=== PATIENT | female | born 1970 | race Caucasian/White ===

== ENCOUNTER 2024-06-04 14:52 | Emergency (ER) | payer OTHER, SELFPAY ==
--- NOTE | ~2024-06-04 | CT_ITS ---
EXAMINATION: CT ABDOMEN AND PELVIS WITH CONTRAST CLINICAL INFORMATION: Lower abdominal pain COMPARISON: None available. TECHNIQUE: Multidetector volumetric images were obtained from the superior aspect of the liver through the pubic symphysis following administration 85 mL of Omnipaque 350 intravenous contrast. Sagittal and coronal reformatted images were obtained on the technologist's workstation. Oral contrast: No This CT examination was performed using dose optimization techniques as appropriate, variously including the following: *Automated exposure control *Adjustment of mA and/or kV according to patient size (this includes techniques or standardized protocols for targeted exams where dose is matched to indication/reason for exam; i.e. extremities or head) *Use of iterative reconstruction technique DLP: 790 mGy-cm FINDINGS: LUNG BASES: 4 mm nodule in the right lower lobe. LIVER, GALLBLADDER, AND BILIARY TREE: Liver is decreased in density consistent with hepatic steatosis. The gallbladder is unremarkable with no evidence of radiopaque gallstones, gallbladder wall thickening, or obvious pericholecystic inflammatory changes. PANCREAS: Unremarkable. SPLEEN: Unremarkable. ADRENAL GLANDS: Unremarkable. KIDNEYS AND URETERS: The kidneys are normal in size, shape, and attenuation. No hydronephrosis, hydroureter, or calculi seen. No perinephric stranding. BLADDER: Unremarkable. GASTROINTESTINAL TRACT: The small bowel are unremarkable. The appendix is unremarkable. Focal bowel wall thickening with adjacent inflammatory stranding in minimal mesenteric fluid is seen adjacent to the sigmoid colon. Multiple diverticula are seen within the sigmoid colon and findings most consistent with acute diverticulitis. No evidence of drainable abscess formation. No free air seen. ABDOMINAL WALL: No significant hernia is appreciated. LYMPH NODES: Normal. VASCULAR: Unremarkable. PELVIC VISCERA: The uterus and adnexa are unremarkable. OSSEOUS STRUCTURES: Unremarkable. CT/CT abdomen pelvis w IV con IMPRESSION: 1. Acute diverticulitis of the sigmoid colon. No evidence of abscess formation or free air. 2. Hepatic steatosis. 3. 4 mm nodule in the right lower lobe. According to the UPDATED 2017 Fleischner Society recommendations, the advised follow-up imaging for solid nodules <6 mm in the middle/lower lobes is no routine follow up. Electronically signed by: Billy Rogel MD 06/04/2024 10:34 PM EDT
[2024-06-04 15:26] VITALS: BP 156/106; PULSE 109; RESP 18; TEMP 37.1; O2SAT 98; BMI 33.4
--- NOTE | 2024-06-04 15:27 | ED.ABDPAIN ---
HPI - Abdominal Pain General Chief Complaint: Abdominal Pain Stated Complaint: abd pain Time Seen by Provider: 06/04/24 19:31 History of Present Illness ED Provider: Dr. Murcia HPI narrative: 53 y/o F patient; without significant PMH; presents from home reporting intermittent cramping lower abdominal pain associated with maroon diarrhea. Patient states she has been having to strain with bowel movements. She denies: nausea/vomiting, fever or chills, chest pain, SOB, cough/congestion, syncope. No significant food aversion. She denies daily alcohol intake. She denies frequent NSAID use. She did have a colonoscopy at age 49 that was notable for diverticulosis. Related Data Allergies Allergy/AdvReac Type Severity Reaction Status Date / Time amoxicillin Allergy Rash Verified 06/04/24 15:31 azithromycin [From Zithromax] Allergy Rash Verified 06/04/24 15:31 doxycycline Allergy Rash Verified 06/04/24 15:31 metformin Allergy Gastrointestinal Verified 06/04/24 15:31 Upset Penicillins Allergy Rash Verified 06/04/24 15:31 Sulfa (Sulfonamide Allergy Rash Verified 06/04/24 15:31 Antibiotics) Review of Systems Review of Systems Yes all other systems are reviewed and are negative Denies Sensory deficit (Neuro) PMFSH Past Medical History Attestation statement: The following information was validated with the patient. Source: old records reviewed Social History Social History Advance Directives: No Advance Directives Information Provided: Yes Physical Exam ED Vital Signs: Vital Signs - 24 hr 06/04/24 15:26 06/04/24 19:38 Temperature 98.8 F 97.2 F Pulse Rate 109 H 106 H Respiratory Rate 18 16 Blood Pressure 156/106 H 159/87 H Pulse Oximetry 98 100 Oxygen Delivery Method Room Air Room Air BMI result Body Mass Index 33.4 Patient is afebrile, tachycardic, hemodynamically stable Const General: cooperative and no acute distress Orientation/consciousness: patient oriented x3 HENMT Head: Yes normal to inspection and Yes atraumatic Eyes General: appearance normal, both eyes and all related structures Pupils: Equal, round and reactive pupils present EOM: EOMs intact bilaterally Neck Neck: Yes normal visual inspection, Yes full ROM, Yes supple and No tender Chest Chest palpation & inspection: normal inspection of the chest and normal palpation of entire chest wall Resp Effort & Inspection: normal respiratory effort, able to speak in complete sentences, no cough and no respiratory distress Auscultation: clear to auscultation bilaterally Cardio Rate: tachycardic Rhythm: regular rhythm Peripheral pulses: Peripheral pulses 2+ throughout GI Other: LLQ abdominal tenderness Inspection: Yes normal to inspection, No Abdominal wall edema and No distended Palpation (GI): Soft to palpation, not firm, Tenderness to palpation present (GI), no guarding and not rigid Auscultation: normal bowel sounds Back/Spine/Pelvis Back: No back tenderness Neuro General: patient oriented x3 Cranial nerves: Yes Equal, round and reactive pupils present Motor exam (neuro): 5/5 motor strength present throughout Sensory Exam: No Sensory deficit (Neuro) Course Course Course Narrative: This is a Rapid Medical Examination (RME) performed by Sowmya Recinos PA-C in triage. Full HPI, ROS, assessment and treatment plan per primary provider in the Main ED. 53 yo female here w/ lower abdominal cramping, reports loose stools, and an episode of bloody/mucous stool this morning. abd pain has been constant, waxes and wanes in intensity. last colonoscopy 4 yrs ago. not on AC. + obese abd, soft, ND/NT. Plan: labs, UA, OBS Reevaluation(s) Reevaluation #1: Patient is afebrile and hemodynamically stable. Reviewed triage work up. WBC with leukocytosis 15. COVID/Flu/RSV negative. Will obtain CT Abdomen/Pelvis to r/o diverticulitis. Plan: Transition care to Dr. Pollock Condition: Stable Medical Decision Making Lab Data 06/04/24 15:58 06/04/24 15:58 Labs: Lab Results 06/04/24 Range/Units 15:58 WBC 15.0 H (4.8-10.8) X10*3/uL RBC 5.04 (4.20-5.50) X10*6/uL Hgb 14.7 (12.0-16.0) g/dl Hct 42.6 (37.0-47.0) % MCV 84.5 (80.0-98.0) fL MCH 29.2 (27.0-33.0) pg MCHC 34.5 (31.0-35.0) g/dl RDW 12.6 (11.0-16.0) % Plt Count 302 (160-400) X10*3/uL MPV 10.7 (9.4-12.3) fL Immature Gran % (Auto) 0.4 (0.0-0.4) % Neut % (Auto) 75.9 H (45-73) % Lymph % (Auto) 15.8 L (20-40) % Dawes % (Auto) 7.5 (2-11) % Eos % (Auto) 0.1 (0-4) % Baso % (Auto) 0.3 (0-2) % Lymph # (Auto) 2.4 (1.2-4.9) X10*3/uL Dawes # (Auto) 1.1 (0.1-1.2) X10*3/uL Eos # (Auto) 0.0 (0.0-0.4) X10*3/uL Baso # (Auto) 0.0 (0.0-0.2) X10*3/uL Abs Immat Gran (auto) 0.06 H (0.00-0.03) X10*3/uL Absolute Neuts (auto) 11.4 H (2.0-8.3) x10*3/uL Absolute Nucleated RBC 0.000 (0.0-0.012) X10*3/uL Nucleated RBC % (auto) 0.0 (0.0-0.2) /100WBC Sodium 136 (135-145) mmol/L Potassium 4.3 (3.3-5.1) mmol/L Chloride 101 (96-108) mmol/L Carbon Dioxide 24 (22-29) mmol/L Anion Gap 15 (12-20) BUN 8 L (9-16) mg/dL Creatinine 0.80 (0.5-1.4) mg/dL Estim Creat Clear Calc 89.6 Estimated GFR > 60 Random Glucose 171 H (60-115) mg/dL Calcium 9.8 (8.4-10.2) mg/dL Magnesium 2.1 (1.6-2.6) mg/dL Total Bilirubin 0.6 (0.0-1.0) mg/dL AST 27 (5-31) U/L ALT 43 H (0-31) U/L Alkaline Phosphatase 107 (39-117) U/L Total Protein 7.7 (6.5-8.0) g/dL Albumin 4.3 (3.5-5.0) g/dL Lipase 26 (8-78) U/L Influenza Type A (PCR) NEGATIVE (Negative) Influenza Type B (PCR) NEGATIVE (Negative) RSV RNA Qual (PCR) NEGATIVE (Negative) SARS-CoV-2 RNA (RT-PCR) NEGATIVE (Negative) Discharge Plan Discharge Clinical Impression: Abdominal pain Patient Disposition: Still a Patient Print Language: Greenlandic
[2024-06-04 16:04] LABS: MANUAL DIFF FLAG NO
[2024-06-04 16:05] LABS: Basophils Percent Auto 0.3 % (0-2); Eosinophils Percent Auto 0.1 % (0-4); Hematocrit 42.6 % (37.0-47.0); Hemoglobin 14.7 g/dl (12.0-16.0); Imm Gran Abs Auto 0.06 X10*3/uL (0.00-0.03); Imm Gran Pct Auto 0.4 % (0.0-0.4); Lymphocytes Absolute Auto 2.4 X10*3/uL (1.2-4.9); Lymphocytes Percent Auto 15.8 % (20-40); Mean Corpuscular HGB Conc 34.5 g/dl (31.0-35.0); Mean Corpuscular Hemoglobin 29.2 pg (27.0-33.0); Mean Corpuscular Volume 84.5 fL (80.0-98.0); Mean Platelet Volume 10.7 fL (9.4-12.3); Monocytes Absolute Auto 1.1 X10*3/uL (0.1-1.2); Monocytes Percent Auto 7.5 % (2-11); Neutrophils Absolute Auto 11.4 x10*3/uL (2.0-8.3); Neutrophils Percent Auto 75.9 % (45-73); Platelet Count 302 X10*3/uL (160-400); Red Blood Count 5.04 X10*6/uL (4.20-5.50); Red Cell Distribution Width 12.6 % (11.0-16.0)
[2024-06-04 16:19] LABS: Alanine Aminotransferase 43 U/L (0-31); Albumin Level 4.3 g/dL (3.5-5.0); Alkaline Phosphatase 107 U/L (39-117); Anion Gap 15 (12-20); Aspartate Amino Transferase 27 U/L (5-31); Bilirubin Total 0.6 mg/dL (0.0-1.0); Blood Urea Nitrogen 8 mg/dL (9-16); Calcium 9.8 mg/dL (8.4-10.2); Carbon Dioxide 24 mmol/L (22-29); Chloride 101 mmol/L (96-108); Creatinine Clr Calc Pharmacy 89.6; Estimated Glomerular Filt Rate > 60; Glucose Random 171 mg/dL (60-115); Lipase 26 U/L (8-78); Magnesium 2.1 mg/dL (1.6-2.6); Potassium 4.3 mmol/L (3.3-5.1); Sodium 136 mmol/L (135-145); Total Protein 7.7 g/dL (6.5-8.0)
[2024-06-04 16:42] LABS: Influenza A PCR NEGATIVE (Negative); Influenza B PCR NEGATIVE (Negative); Resp Syncy Virus RNA Qual PCR NEGATIVE (Negative); SARS COV2 PCR INHOUSE NEGATIVE (Negative)
[2024-06-04 19:38] VITALS: BP 159/87; PULSE 106; RESP 16; TEMP 36.2; O2SAT 100
[2024-06-04 20:09] LABS: Appearance Urine Clear; Color Urine Yellow; Glucose Urine UA 100 mg/dL (Negative); Leukocyte Esterase Urine Trace (Negative); Nitrite Urine Negative (Negative); PH 5.5 (5.0-9.0); UMIC TRIGGER UACC YES; Urine Blood Negative (Negative); Urine Ketones Negative (Negative); Urine Protein Negative (Neg-Trace)
[2024-06-04 20:43] LABS: Bacteria Urine 2+ (None Seen); Hyaline Casts Urine 0-2 /LPF (0-2); RBC Urine 0-2 /HPF (0-2); UACC Culture Trigger YES
[2024-06-04] MEDS: iohexoL 350 MG/ML 100 ML INFUS..BTL IV (20:55)
--- NOTE | 2024-06-04 22:01 | PC.NURSE ---
Pt pacing the halls, expressing frustration over waiting for the CT to be read. Pt requesting ice chips. Visitor at bedside, VSS, continue to monitor.
[2024-06-04 22:06] VITALS: BP 159/88; PULSE 101; RESP 19; TEMP 36.3; O2SAT 98
--- NOTE | 2024-06-04 22:17 | MHC.EDTECH ---
Pt is becoming agitated with this cell phone repair technician as pt states she wants to see the doctor and know her results. This tech explained to pt that the doctor should be over shortly and as soon as possible. Pt states she wants the tech to tell her the results of her scan and tech explains she cannot but the doctor will be over as soon as possible. Pt states she wants to go home and wait for results there. Tech stated she would get the pt nurse.
--- NOTE | 2024-06-04 22:34 | PC.NURSE ---
This RN discussing lengthy read times with Radiology. Radiology to expedite this patients read. Pt requesting to leave, states tomorrow is her first day of school and she can't wait here all night.
--- NOTE | 2024-06-04 22:50 | PC.NURSE ---
MD at bedside discussing CT results and plan of care.
--- NOTE | 2024-06-04 22:56 | PC.NURSE ---
Addendum entered by Alyssa Moe 06/05/24 00:27: Per MD, no BCX/lactic needed. Original Note: MD at bedside. Plan for PO ABX and discharge after first dose of IV ABX. Pt agreeable to plan of care.
[2024-06-04] MEDS: levoFLOXacin/D5W 500 MG/100 ML PIGGYBACK 100 MG IV (23:05)
[2024-06-04] MEDS: metroNIDAZOLE 500 MG TABLET PO (23:06)
[2024-06-05 00:23] VITALS: BP 147/93; PULSE 89; RESP 18; TEMP 37; O2SAT 98
== END 2024-06-05 00:24 | disposition home or self-care (01) ==
PROVIDERS: Physician Assistant Medical; Emergency Provider Emergency Medicine; PCP Nurse Practitioner Family
DX: R10.30 Lower abdominal pain, unspecified (principal); Z03.818 Encounter for observation for suspected exposure to other biological agents ruled out; Z79.84 Long term (current) use of oral hypoglycemic drugs
CPT/HCPCS: 0241U; 74177; 80053; 81001; 83690; 83735; 85025; 87086; 96365; 99283; 99284; J1956; Q9967